=== PATIENT | female | born 1985 | race Caucasian/White ===

== ENCOUNTER 2016-11-18 07:55 | Emergency (ER) | payer OTHER ==
[~2016-11-18] VITALS: Ht 167.6 cm; Wt 61.2 kg
[2016-11-18 07:56] VITALS: BP 134/97
== END 2016-11-18 08:10 | disposition home or self-care (01) ==
LOC: ED 07:55
DX: H01.002 Unspecified blepharitis right lower eyelid (principal); Z88.2 Allergy status to sulfonamides; Z88.8 Allergy status to other drugs, medicaments and biological substances

== ENCOUNTER → 2017-08-25 | Outpatient (CLI) | payer OTHER | END | disposition home or self-care (01) | LOC: RD 14:54 | DX: R05 Cough (principal) ==

== ENCOUNTER 2018-01-23 19:23 | Emergency (ER) | payer OTHER ==
[2018-01-23 19:37] VITALS: Ht 167.6 cm
[2018-01-23 21:05] VITALS: BP 135/74
== END 2018-01-23 21:05 | disposition home or self-care (01) ==
LOC: ED 19:23
DX: L03.115 Cellulitis of right lower limb (principal); L25.9 Unspecified contact dermatitis, unspecified cause; R03.0 Elevated blood-pressure reading, without diagnosis of hypertension; Z88.2 Allergy status to sulfonamides; Z88.1 Allergy status to other antibiotic agents

== ENCOUNTER 2019-05-14 19:46 | Emergency (ER) | payer OTHER ==
[~2019-05-14] VITALS: Ht 167.6 cm; Wt 71.2 kg
[2019-05-14 19:51] VITALS: Ht 167.6 cm; Wt 71.2 kg
[2019-05-14 20:40] VITALS: BP 135/80
[2019-05-14 20:45] LABS: UA SPECIFIC GRAVITY >=1.030 (1.005-1.035); microscopic required? YES; urine erythrocyte 3+ (NEGATIVE)
== END 2019-05-14 20:40 | disposition home or self-care (01) ==
LOC: ED 19:46
PROVIDERS: Emergency Medicine
DX: N39.0 Urinary tract infection, site not specified (principal); Z88.2 Allergy status to sulfonamides; Z88.1 Allergy status to other antibiotic agents; Z90.89 Acquired absence of other organs